=== PATIENT | female | born 2000 | race Caucasian/White ===

== ENCOUNTER 2021-05-21 21:56 | Emergency (ER) | payer OTHER ==
[2021-05-21 22:16] VITALS: BP 112/76; PULSE 81; TEMP 98.8; BMI 27.3
[2021-05-22] MEDS ORDERED: ACETAMINOPHEN 500 MG TABLET (FP) PO ONE (00:12)
[2021-05-22] MEDS ORDERED: ACETAMINOPHEN 325 MG TABLET (FP) ONE (00:36)
== END 2021-05-22 01:08 | disposition home or self-care (01) ==
LOC: JER 21:56
DX: S01.81XA Laceration without foreign body of other part of head, initial encounter (principal); W22.8XXA Striking against or struck by other objects, initial encounter
CPT/HCPCS: 99283-25